=== PATIENT | male | born 1970 | race Caucasian/White ===

== ENCOUNTER 2018-11-10 07:37 | Emergency (ER) | payer MEDICAID ==
[2018-11-10] MEDS: DIPHTH/TET/ACEL PERTUSS (ADULT) 0.5 ML VIAL IM* (08:19)
[2018-11-10] MEDS: LIDOCAINE 1% (MPF) 5 ML VIAL INJ (08:19)
== END 2018-11-10 08:53 | disposition home or self-care (01) ==
LOC: FTE 08:53
DX: S61.214A Laceration without foreign body of right ring finger without damage to nail, initial encounter (principal); W26.8XXA Contact with other sharp object(s), not elsewhere classified, initial encounter; Y92.9 Unspecified place or not applicable
CPT/HCPCS: 12001; 90471; 90715; 99283-25

== ENCOUNTER 2018-11-12 09:15 | Emergency (ER) | payer MEDICAID | END 2018-11-12 10:03 | disposition home or self-care (01) | LOC: FTE 09:15 | DX: Z48.00 Encounter for change or removal of nonsurgical wound dressing (principal) ==

== ENCOUNTER 2018-11-16 08:50 | Emergency (ER) | payer MEDICAID ==
[2018-11-16] MEDS ORDERED: BACITRACIN 0.5%/ZINC 28.35 GM OINT TOP (09:30)
== END 2018-11-16 09:45 | disposition home or self-care (01) ==
LOC: FTE 08:50
DX: Z48.02 Encounter for removal of sutures (principal)
CPT/HCPCS: 99282; Z7502